=== PATIENT | female | born 2000 | race Caucasian/White ===

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

== ENCOUNTER 2020-09-12 12:28 | Emergency (ER) | payer OTHER, MEDICAID, SELFPAY ==
[2020-09-12 12:36] VITALS: BP 181/98; PULSE 87; RESP 22; TEMP 36.6; O2SAT 97; BMI 25.8
--- NOTE | 2020-09-12 13:38 | DI.US.S_ITS ---
PROCEDURE: US PELVIC COMPLETE INDICATIONS: PAIN; HISTORY OVARIAN CYSTS, ENDOMETRIOSIS TECHNIQUE: Real-time scanning was performed of the pelvic organs, with image documentation. Additional endovaginal scanning was necessary due to incomplete visualization of the adnexal and endometrial structures by transabdominal scanning. COMPARISON: [facility], [place], US PELVIC COMPLETE, 02/11/2018, 15:23. [facility], [place], US PELVIC COMPLETE, 08/01/2018, 15:16. FINDINGS: Uterus: Uterus is normal in size at 7.0 x 3.3 x 5.1 cm. The endometrium measures 2.8 mm in combined thickness. Ovaries: Right ovary measures 3.8 x 2.1 x 2.8 cm, and contains a probable hemorrhagic cyst measuring 2.1 cm in maximum diameter. Left ovary measures 2.3 x 2.7 x 2.5 cm. Other: No pathologic free abdominal or pelvic fluid. Physiologic fluid is present. IMPRESSION: 1. 2.1 cm hemorrhagic left ovarian cyst. 2. Otherwise unremarkable pelvic ultrasound. Dictated by: Lux Cobb M.D. on 09/12/2020 at 15:18 Approved by: Lux Cobb M.D. on 09/12/2020 at 15:25
[2020-09-12 14:15] LABS: Add Manual Diff / Slide Review NO; Basophils Absolute Auto 100 /uL (0-100); Basophils Percent Auto 0.6 % (0-2); Eosinophils Absolute Auto 100 /uL (0-450); Eosinophils Percent Auto 1.2 % (2-4); Hematocrit 42.9 % (36-46); Hemoglobin 14.7 g/dL (12.0-16.0); Lymphocytes Absolute Auto 1800 /uL (1100-4500); Lymphocytes Percent Auto 18.9 % (25-40); Mean Corpuscular HGB Conc 34.2 % (30-36); Mean Corpuscular Hemoglobin 30.7 PG (26-34); Mean Corpuscular Volume 89.9 fL (80-100); Monocytes Absolute Auto 600 /uL (0-900); Monocytes Percent Auto 6.1 % (3-14); Neutrophils Absolute Auto 7100 /uL (1500-7000); Neutrophils Percent Auto 73.2 % (50-75); Platelet Count 239 X10^3/uL (150-400); Red Blood Cell Count 4.78 X10^6/uL (4.0-5.2); Red Cell Distribution Width 12.4 % (11.6-14.8); White Blood Cell Count 9.7 X10^3/uL (4.5-11.0)
[2020-09-12 14:26] LABS: Alanine Aminotransferase 17 IU/L (<35); Albumin 4.7 g/dL (3.5-5.0); Albumin Globulin Ratio 1.4 (1.0-2.8); Alkaline Phosphatase 42 U/L (38-126); Aspartate Aminotransferase 28 IU/L (14-36); BUN Creatinine Ratio 19.7 (6-22); Bilirubin Total 0.6 mg/dL (0.2-1.3); Blood Urea Nitrogen 13 mg/dL (7-17); Calcium 9.9 mg/dL (8.4-10.2); Carbon Dioxide 27 mmol/L (22-32); Chloride 104 mmol/L (98-107); Estimated Glomerular Filt Rate > 60.0 mL/min (>60); Globulin 3.3 g/dL (1.7-4.1); Glucose 99 mg/dL (70-100); HEMOLYSIS < 15 (0-50); Lipase 37 U/L (23-300); Potassium 4.2 mmol/L (3.4-5.1); Sodium 139 mmol/L (137-145)
--- NOTE | 2020-09-12 17:36 | ED_ITS ---
HPI - Abdominal Pain General Chief Complaint: Abdominal Pain Stated Complaint: Trouble breathing,hands itching Time Seen by Provider: 09/12/20 17:36 Source: patient Mode of arrival: Wheelchair Limitations: no limitations History of Present Illness HPI narrative: This is a 19-year-old female who comes emergency department and states that initially she was walking to with a leak out in the heat when she felt like her his legs with itching. She fully she is having little bit of trouble breathing and some tightness in her throat and she threw up. Shortly after she began have lower pelvic discomfort. Patient states since then her symptoms have resolved. She does have a history not and attacks allergies stat es she had eaten about an hour prior but those symptoms have resolved. Patient did not have any fevers or chills. She has not had continuous nausea or vomiting. She is not appreciate any new diarrhea, black or bloody stools. Patient denies any dysuria, urgency or frequency. She is currently on her menses. Patient states that she was diagnosed with ovarian cyst and required surgical removal of a quite large ovarian cyst due to the risk of torsion. Her OBGYN is Dr. Patel. She was recently started on oral contraceptives to help prevent cysts and has been taking her OCP for the last month. Patient states she is currently pain-free your enough so that she does not wish to have anything Related Data Previous Rx's Medication Instructions Recorded fluconazole 150 mg tablet 150 mg PO ONCE #1 tab 08/25/20 levonorgestrel-ethinyl estradiol 1 tab PO DAILY #84 tab 08/25/20 0.1 mg-20 mcg tablet Allergies Allergy/AdvReac Type Severity Reaction Status Date / Time nut - unspecified Allergy Severe Anaphylaxis Verified 08/25/20 14:15 Latex, Natural Rubber Allergy Hives Verified 08/25/20 14:15 Review of Systems Review of Systems ROS Unobtainable: All systems reviewed & are unremarkable except as noted in HPI and below Patient History Surgical History S/P ovarian cystectomy (09/28/17) Social History household members: family Smoking Status: Never smoker Smoking Status: Never smoker alcohol intake frequency: 0-2 drinks per day Substance Use Type: marijuana Exam Narrative Exam Narrative: GENERAL: Alert and oriented x three, Well-nourished female in mild distress. HEENT: Head normocephalic, atraumatic, EOMI, pupils reactive, face symmetric, moist mucous membranes NECK: Supple, full range of motion CARDIOVASCULAR: Regular rate and rhythm without murmurs, rubs or gallops. RESPIRATORY: Breath sounds equal bilaterally, no wheezes rales or rhonchi. ABDOMEN: Soft, Mild pelvic tenderness. Normoactive bowel sounds all 4 quadrants. No guarding or rebound, rigidity, no mass : No CVA tenderness EXTREMITIES: Normal range of motion, no clubbing or edema. Neurovascularly intact NEUROLOGICAL: Cranial nerves II through XII grossly intact. Moving all extremi ties SKIN: Warm, dry, no petechiae, no rashes or lesions. Initial Vital Signs Initial Vital Signs: Vital Signs Temperature 97.9 F 09/12/20 12:36 Pulse Rate 87 09/12/20 12:36 Respiratory Rate 22 09/12/20 12:36 Blood Pressure 181/98 H 09/12/20 12:36 Pulse Oximetry 97 09/12/20 12:36 Course Orders Ordered: ED Orders 09/12/20 13:38 US pelvic complete Stat 09/12/20 14:05 Complete Blood Count AUTO DIFF Stat Comprehensive Metabolic Panel Stat Lipase Stat Vital Signs Vital signs: Vital Signs - 8 hr 09/12/20 12:36 09/12/20 17:51 Temperature 97.9 F Pulse Rate 87 72 Respiratory Rate 22 14 Blood Pressure 181/98 H 147/83 H Pulse Oximetry 97 99 MDM - Abdominal Pain Lab Data Attestation: I reviewed the patient's lab results. Result diagrams: 09/12/20 14:05 09/12/20 14:05 Labs: Lab Results 09/12/20 09/12/20 Range/Units 14:05 14:05 WBC 9.7 (4.5-11.0) X10^3/uL RBC 4.78 (4.0-5.2) X10^6/uL Hgb 14.7 (12.0-16.0) g/dL Hct 42.9 (36-46) % MCV 89.9 (80-100) fL MCH 30.7 (26-34) PG MCHC 34.2 (30-36) % RDW 12.4 (11.6-14.8) % Plt Count 239 (150-400) X10^3/uL Neut % (Auto) 73.2 (50-75) % Lymph % (Auto) 18.9 L (25-40) % [place] % (Auto) 6.1 (3-14) % Eos % (Auto) 1.2 L (2-4) % Baso % (Auto) 0.6 (0-2) % Neut # (Auto) 7100 H (7813-6872) /uL Lymph # (Auto) 1800 (5288-8002) /uL [place] # (Auto) 600 (0-900) /uL Eos # (Auto) 100 (0-450) /uL Baso # (Auto) 100 (0-100) /uL Sodium 139 (137-145) mmol/L Potassium 4.2 (3.4-5.1) mmol/L Chloride 104 (98-107) mmol/L Carbon Dioxide 27 (22-32) mmol/L BUN 13 (7-17) mg/dL Creatinine 0.66 (0.52-1.04) mg/dL Estimated GFR > 60.0 (>60) mL/min BUN/Creatinine Ratio 19.7 (6-22) Glucose 99 (70-100) mg/dL Calcium 9.9 (8.4-10.2) mg/dL Total Bilirubin 0.6 (0.2-1.3) mg/dL AST 28 (14-36) IU/L ALT 17 (<35) IU/L Alkaline Phosphatase 42 (38-126) U/L Total Protein 8.0 (6.3-8.2) g/dL Albumin 4.7 (3.5-5.0) g/dL Globulin 3.3 (1.7-4.1) g/dL Albumin/Globulin Ratio 1.4 (1.0-2.8) Lipase 37 (23-300) U/L Point of care testing: Point of Care Testing Test Results Negative Urine Dip Bedside Urine Glucose Negative Bedside Urine Bilirubin - Negative Bedside Urine Ketone - Negative Urine Specific [place] 1.015 Bedside Urine Occult Blood - Negative Bedside Urine pH 8.5 Bedside Urine Protein +/- 15 Bedside Urine Urobilinogen - Negative Bedside Urine Nitrite - Negative Bedside Urine Leukocytes - Negative Esterase Imaging Data [place] - [employer] COUNSELOR: Radiologist's Impression: [address] [id number] ReportSigned Patient: Tim Morin#: [id number]: 2000Acct:[id number]/Sex: 19 / FDate of Service: 09/12/20Loc: EDAccession Number: [id number] Procedure: US pelvic complete Ordering Provider: Ester Hernandes D.O. PROCEDURE: US PELVIC COMPLETE INDICATIONS: PAIN; HISTORY OVARIAN CYSTS, ENDOMETRIOSIS TECHNIQUE: Real-time scanning was performed of the pelvic organs, with image documentation. Additional endovaginal scanning was necessary due to incomplete visualization of the adnexal and endometrial structures by transabdominal scanning. COMPARISON: [facility], , PELVIC COMPLETE, 02/11/2018, 15:23. [facility], , PELVIC COMPLETE, 08/01/2018, 15:16. FINDINGS: Uterus: Uterus is normal in size at 7.0 x 3.3 x 5.1 cm. The endometrium measures 2.8 mm in combined thickness. Ovaries: Right ovary measures 3.8 x 2.1 x 2.8 cm, and contains a probable hem orrhagic cyst measuring 2.1 cm in maximum diameter. Left ovary measures 2.3 x 2.7 x 2.5 cm. Other: No pathologic free abdominal or pelvic fluid. Physiologic fluid is present. IMPRESSION: 1. 2.1 cm hemorrhagic left ovarian cyst. 2. Otherwise unremarkable pelvic ultrasound. Dictated by: Lux Cobb M.D. on 09/12/2020 at 15:18 Approved by: Lux Cobb M.D. on 09/12/2020 at 15:25 MDM Narrative Medical decision making narrative: Patient's labs and urine are reassuring today. No signs of . Pelvic exam is his at 2.1 cm her Magic ovarian cyst which is likely cause of her abdominal discomfort. Unclear if the itching sensation and throat tightness or consistent but this has cleared is not occurring any longer. Patient was encouraged to touch base with her OBGYN she has only been on her oral contraceptives for 1 month and we discussed they will likely keep her on these at this time. All questions are answered. Patient defers anything for pain. Discharge Plan Departure Patient Disposition: Home Clinical Impression: Ovarian cyst Qualifiers: Laterality: left Qualified Code(s): N83.202 - Unspecified ovarian cyst, left side Instructions: DI for Ovarian Cyst Activity Restrictions/Additional Instructions: Follow up with Dr. Patel. You may take tylenol and/or ibuprofen as needed for pain. Your ultrasound today shows a 2 cm ovarian cyst on the left. please return for lightheadedness or passing out new or recurrent symptoms, severe abdominal pain, persistent vomiting, black or bloody stools, new chest pain shortness of breath or other new or concerning symptoms. Prescriptions: No Action fluconazole [Diflucan] 150 mg tablet 150 mg PO ONCE Qty: 1 RF: 0 levonorgestrel-ethinyl estrad [Aviane] 0.1-20 mg-mcg tablet 1 tab PO DAILY Qty: 84 RF: 3 Referrals: Ying Patel MD [Physician] - Miscellaneous,MD Jovani [Primary Care Provider] -
[2020-09-12 17:51] VITALS: BP 147/83; PULSE 72; RESP 14; O2SAT 99
== END 2020-09-12 17:54 | disposition home or self-care (01) ==
PROVIDERS: Emergency Provider Emergency Medicine
DX: N83.202 Unspecified ovarian cyst, left side (principal); R06.00 Dyspnea, unspecified; L29.9 Pruritus, unspecified
CPT/HCPCS: 36415; 76830; 76856; 80053; 81003; 81025; 83690; 85025; 99282; 99284

== ENCOUNTER → 2020-11-16 14:44 | Outpatient (CLI) | payer OTHER, MEDICAID, SELFPAY ==
[2020-11-16 17:46] LABS: COVID19 -Nasal RAPID Negative (Negative)
== END ==
PROVIDERS: Visit Provider Physician Assistant
DX: Z20.822 Contact with and (suspected) exposure to COVID-19 (principal); R05 Cough
CPT/HCPCS: 87635

== ENCOUNTER 2020-11-23 16:03 | Emergency (ER) | payer OTHER, MEDICAID, SELFPAY ==
[2020-11-23 16:14] VITALS: BP 125/80; PULSE 120; RESP 18; TEMP 37.2; O2SAT 99; BMI 26.6
--- NOTE | 2020-11-23 16:33 | ED.ALLEREA ---
HPI - Allergic Reaction General Chief complaint: Allergic Reaction Stated complaint: allergic reaction, thinks throat is closing Time Seen by Provider: 11/23/20 16:27 Source: patient Mode of arrival: Ambulatory Limitations: no limitations History of Present Illness HPI narrative: 19-year-old with a history of mild intermittent asthma, peanut allergies with an EpiPen available, ovarian cysts and anxiety presents with complaints of difficulty breathing, throat tightening and dramatic increased anxiety after tasting popcorn samples at [facility] and being concerned that 1 of the may have had peanuts in it. She drink a ?little bit? of pediatric Benadryl did not use her EpiPen and comes in for further evaluation. She is sunburn from some sun exposure yesterday has mild scattered wheezes and is significantly anxious but able to speak in full sentences with no other skin rashes appreciated. Related Data Previous Rx's Medication Instructions Recorded fluconazole 150 mg tablet 150 mg PO ONCE #1 tab 08/25/20 (Diflucan) levonorgestrel-ethinyl estradiol 1 tab PO DAILY #84 tab 08/25/20 0.1 mg-20 mcg tablet (Aviane) epinephrine 0.3 mg/0.3 mL 0.3 mg IM Q5-15M PRN #2 ea 11/23/20 injection, auto-injector famotidine 20 mg tablet (Pepcid) 20 mg PO DAILY #14 tab 11/23/20 loratadine 10 mg tablet (Claritin) 10 mg PO DAILY PRN 30 Days #30 tab 11/23/20 prednisone 20 mg tablet 20 mg PO DAILY #5 tab 11/23/20 Allergies Allergy/AdvReac Type Severity Reaction Status Date / Time nut - unspecified Allergy Severe Anaphylaxis Verified 11/23/20 16:14 Latex, Natural Rubber Allergy Hives Verified 11/23/20 16:14 Review of Systems Review of Systems Narrative: Pertinent positive and negative findings as per HPI Remainder of review of systems is otherwise unremarkable for Constitutional: Fevers, chills, weakness ENT: neck pain, ear pain CV: Chest pain, palpitations, GI: vomiting, diarrhea, : Dysuria, hematuria, Patient History Medical History (Updated 11/23/20 @ 19:09 by Fifi Ochoa MD) Anxiety Asthma Peanut allergy Surgical History S/P ovarian cystectomy (09/28/17) Social History household members: family Smoking Status: Never smoker Smoking Status: Never smoker alcohol intake frequency: 0-2 drinks per day Substance Use Type: marijuana Exam Narrative Exam Narrative: General: Healthy appearing, extraordinarily anxious, sunburn ill speaking complete sentences with no respiratory distress HEENT: Moist mucous membranes, normal sclera with reactive pupils, Respiratory: Lungs with mild scattered wheezing in upper lung gan, no rales no rhonchi. No accessory muscle use or retractions Full and symmetrical air movement Cardiac: Regular rate and rhythm no murmurs no bruits Abdomen: Soft, nontender, good bowel tones, no flank pain Skin: Warm and dry, sun burned over face upper chest and upper back Neurologic: Grossly neurologically intact with no obvious asymmetries or abnormalities Extremities: No trauma, well perfused Psych: Cooperative, appropriate insight and affect Initial Vital Signs Initial Vital Signs: Vital Signs Temperature 99.0 F 11/23/20 16:14 Pulse Rate 120 H 11/23/20 16:14 Respiratory Rate 18 11/23/20 16:14 Blood Pressure 125/80 11/23/20 16:14 Pulse Oximetry 99 11/23/20 16:14 Course Orders Ordered: ED Orders 11/23/20 16:23 COVID19 -Nasal swab/Pre-Proc Stat Famotidine (Famotidine 20 Mg/2 Ml Vial) 20 mg IV NOW HILDA Last Admin: 11/23/20 16:37 Dose: 20 mg Documented by: KENYA Discontinued Medications Lorazepam (Lorazepam 2 Mg/Ml Inj) 1 mg IV NOW ONE Stop: 11/23/20 16:28 Last Admin: 11/23/20 16:36 Dose: 1 mg Documented by: KENYA Methylprednisolone (Methylprednisolone 125 Mg/2 Ml Vial) 125 mg IV NOW ONE Stop: 11/23/20 16:29 Last Admin: 11/23/20 16:36 Dose: 125 mg Documented by: KENYA Vital Signs Vital signs: Vital Signs - 8 hr 11/23/20 16:14 Temperature 99.0 F Pulse Rate 120 H Respiratory Rate 18 Blood Pressure 125/80 Pulse Oximetry 99 MDM - Allergic Reaction Lab Data Labs: Lab Results 11/23/20 Range/Units 16:23 SARS-CoV-2 (PCR) Negative (Negative) MDM Narrative Medical decision making narrative: 19-year-old woman with history of peanut allergy tasting different pop corns at [facility] and began having an acute reaction. She took Benadryl which may have upset her stomach and became much more anxious issues having increasing wheezing. On presentation to the emergency department her skin is flushed she is able to speak in full sentences she does have upper respiratory wheezing tongue and throat are not swollen she is speaking in full sentences. She is given IV Solu-Medrol, and IV Pepcid. After 2 hours of observation she is dramatically improved the skin flushing has significantly resolved she is having no additional wheezing she is feeling much calmer and is ready for home discharge. She is in the process of moving, moving to [place] to start school at [employer]. Requests prescriptions for another EpiPen, albuterol inhaler as well as the brief steroid Pepcid doses that I will be giving her. She has a daily antihistamine that I have asked her to continue as well and she has Benadryl to use at night if needed for sleep. She is safe for home discharge Discharge Plan Departure Patient Disposition: Home Clinical Impression: Peanut allergy Allergic reaction Qualifiers: Encounter type: initial encounter Qualified Code(s): T78.40XA - Allergy, unspecified, initial encounter Instructions: DI for Anaphylaxis Activity Restrictions/Additional Instructions: Thank you for coming in today I have given you a prescription for 5 days of prednisone, 20 mg daily. Pepcid 20 mg daily for 5 days. Claritin 10 mg daily for 5 days then as needed. Refilled albuterol inhaler and EpiPen as well. I wish you the best and I hope [facility] works out well for you. Prescriptions: New prednisone 20 mg tablet 20 mg PO DAILY Qty: 5 RF: 0 famotidine [Pepcid] 20 mg tablet 20 mg PO DAILY Qty: 14 RF: 0 epinephrine 0.3 mg/0.3 mL auto-injector 0.3 mg IM Q5-15M PRN (Reason: anaphylaxis) Qty: 2 RF: 0 loratadine [Claritin] 10 mg tablet 10 mg PO DAILY PRN (Reason: allergy symptoms) 30 Days Qty: 30 RF: 0 No Action fluconazole [Diflucan] 150 mg tablet 150 mg PO ONCE Qty: 1 RF: 0 levonorgestrel-ethinyl estrad [Aviane] 0.1-20 mg-mcg tablet 1 tab PO DAILY Qty: 84 RF: 3 Referrals: Miscellaneous,Doctor, MD [Primary Care Provider] -
[2020-11-23] MEDS: methylPREDNISolone 125 MG/2 ML VIAL IV (16:36)
[2020-11-23] MEDS: LORazepam 2 MG/ML INJ 1 MG IV (16:36)
[2020-11-23] MEDS: FAMOTIDINE 20 MG/2 ML VIAL IV (16:37)
[2020-11-23 17:12] LABS: COVID19 -Nasal RAPID Negative (Negative)
[2020-11-23 19:15] VITALS: BP 121/62; PULSE 96; RESP 20; O2SAT 96
[2020-11-23 19:21] VITALS: BP 121/62; PULSE 102; RESP 33; O2SAT 97
== END 2020-11-23 19:30 | disposition home or self-care (01) ==
PROVIDERS: Emergency Provider Emergency Medicine
DX: T78.40XA Allergy, unspecified, initial encounter (principal); Z91.010 Allergy to peanuts; R06.2 Wheezing
CPT/HCPCS: 87635; 96374; 96375; 99283; 99284; C9803; J2060; J2930

== ENCOUNTER → 2021-03-30 13:20 | Outpatient (CLI) | payer OTHER, MEDICAID, SELFPAY ==
[2021-03-30 15:02] LABS: Pregnancy Test Urine Negative (Negative)
[2021-03-30 15:27] LABS: Urine N gonorrhoeae NOT DETECTED
[2021-03-30 15:53] LABS: Urine Chlamydia DETECTED
== END ==
PROVIDERS: Referring Provider Nurse Practitioner Family; Visit Provider Nurse Practitioner Family
DX: N89.8 Other specified noninflammatory disorders of vagina (principal); Z72.51 High risk heterosexual behavior; Z11.3 Encounter for screening for infections with a predominantly sexual mode of transmission
CPT/HCPCS: 81025; 87210; 87491; 87591